=== PATIENT | female | born 1965 | race Hispanic/Latino ===

== ENCOUNTER 2020-05-16 10:17 | Outpatient (CLI) | payer OTHER ==
--- NOTE | 2020-05-16 11:51 | RAD ---
LEFT FOOT 3 VIEWS: HISTORY: Foot pain. FINDINGS: Tarsals appear intact. The metatarsals and phalanges appear intact. MTP joints unremarkable. IMPRESSION: No acute finding. POS: AGW
== END 2020-05-16 10:18 | disposition home or self-care (01) ==
LOC: NAV RAD 10:17
PROVIDERS: ATTEND Family Medicine
DX: M79.672 Pain in left foot (principal)

== ENCOUNTER 2020-07-01 11:06 | Emergency (ER) | payer SELFPAY ==
[2020-07-01 11:57] LABS: #Lymphocytes 1.1 thou/uL (1.20-3.40); #Monocytes 0.3 thou/uL (0.11-0.59); #Neutrophils 3.8 thou/uL (1.40-6.50); %Basophils 0.2 % (0.0-1.0); %Eosinophils 0.2 % (0.0-10.0); %Lymphocytes 21.3 % (21.0-51.0); %Monocytes 6.4 % (0.0-10.0); %Neutrophils 71.9 % (42.0-75.0); Mean Corpuscular HGB CONC 32.3 g/dL (32.0-36.0); Mean Corpuscular Hemoglobin 28.1 pg (27.0-31.0); Mean Corpuscular Volume 86.9 fL (78.0-98.0); Mean Platelet Volume 8.7 fL (7.4-10.4); Platelet Count 254 thou/uL (130-400); RBC Distribution Width 11.6 % (11.5-14.5); Red Blood Cell (RBC) Count 5.01 mill/uL (4.20-5.40); White Blood Cell (WBC) Count 5.3 thou/uL (4.8-10.8)
[2020-07-01 12:11] LABS: ALT (SGPT) 217 U/L (8-55); AST (SGOT) 278 U/L (5-34); Albumin 3.9 g/dL (3.5-5.0); Alkaline Phosphatase 93 U/L (40-110); Anion Gap 15 mmol/L (10-20); BUN (Urea Nitrogen) 8 mg/dL (9.8-20.1); Bilirubin, Total 0.6 mg/dL (0.2-1.2); Calc. Creatinine Clearance 0 mL/min (70-130); Calcium 8.2 mg/dL (7.8-10.44); Carbon Dioxide 27 mmol/L (22-29); Chloride 98 mmol/L (98-107); Estimated GFR-MDRD 82; Globulin 3.4 g/dL (2.4-3.5); Glucose 135 mg/dL (70-105); Potassium 3.4 mmol/L (3.5-5.1); Protein, Total 7.3 g/dL (6.0-8.3); Sodium 137 mmol/L (136-145)
== END 2020-07-01 12:51 | disposition home or self-care (01) ==
LOC: NAV ERS 11:06
DX: R42 Dizziness and giddiness (principal); R53.1 Weakness; R53.83 Other fatigue
CPT/HCPCS: 80053; 84443; 85025; 93005